=== PATIENT | female | born 1990 | race Caucasian/White ===

== ENCOUNTER 2017-03-19 19:47 | Emergency (ER) | payer SELFPAY ==
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
== END 2017-03-19 21:46 | disposition home or self-care (01) ==
LOC: ERS 19:47
DX: M25.512 Pain in left shoulder (principal); M54.9 Dorsalgia, unspecified; F17.210 Nicotine dependence, cigarettes, uncomplicated; G40.909 Epilepsy, unspecified, not intractable, without status epilepticus; V40.0XXA Car driver injured in collision with pedestrian or animal in nontraffic accident, initial encounter